=== PATIENT | male | born 1990 ===

== ENCOUNTER → 2016-09-19 | Outpatient (REF) | payer OTHER ==
[2016-09-19 15:01] LABS: IMMOTILITY 29 %; NON PROGRESSIVE MOTILITY (c) 13 %; PROGRESSIVE MOTILITY (a) 58 % (>=32); TOTAL MOTILITY 71 % (>=40)
[2016-09-19 15:02] LABS: % NORMAL FORMS 15 % (>=4); SPERM# 44.7 M/Ejac (33-46); TOTAL FUNCTIONAL 8.2 M/Ejac.; TOTAL PROGRESSIVE SPERM 25.8 M/Ejac.
== END ==
LOC: M LAB REF 14:30
PROVIDERS: ATTEND Student in an Organized Health Care Education/Training Program
DX: N46.8 Other male infertility (principal)

== ENCOUNTER → 2016-09-24 | Outpatient (REF) | payer OTHER ==
[2016-09-24 13:43] LABS: NON PROGRESSIVE MOTILITY (c) 10 %; PROGRESSIVE MOTILITY (a) 64 % (>=32); SPERM ABNORMAL FORMS WBC'S NOTED; TOTAL MOTILITY 74 % (>=40)
[2016-09-24 13:44] LABS: % NORMAL FORMS 18 % (>=4); IMMOTILITY 26 %; SPERM# 111.2 M/Ejac (33-46); TOTAL FUNCTIONAL 25.9 M/Ejac.; TOTAL PROGRESSIVE SPERM 71.6 M/Ejac.
== END ==
LOC: M LAB REF 13:33
PROVIDERS: ATTEND Student in an Organized Health Care Education/Training Program
DX: N46.8 Other male infertility (principal)